=== PATIENT | female | born 1935 | race Caucasian/White ===

== ENCOUNTER → 2016-08-14 | Outpatient (CLI) | payer MEDICARE, OTHER ==
[~2016-08-14] MED LIST: ASPI-94 PO; BONI150T PO; LEVO.075 PO; NEUR100C PO; NEXI40CA PO; TYLE3 PO
[2016-08-14 13:28] LABS: MEAN CELL VOLUME 93.3 FL (80.0-100.0); MEAN CORPUSCULAR HGB CONC 33.3 % (32.0-36.0); PLATELET COUNT 261 TH/MM3 (150-450); RED BLOOD COUNT 4.07 MIL/MM3 (4.00-5.30); RED CELL DISTRIBUTION WIDTH 14.3 % (11.6-17.2); REVIEW FLAG FINAL; WHITE BLOOD COUNT 6.7 TH/MM3 (4.0-11.0)
[2016-08-14 13:29] LABS: ANION GAP 7 MEQ/L (5-15); AST (GOT) 30 U/L (15-37); BICARBONATE 31.7 MEQ/L (21.0-32.0); BLOOD UREA NITROGEN 12 MG/DL (7-18); CHLORIDE 105 MEQ/L (98-107); GLOMERULAR FILTRATION RATE 77 ML/MIN (>89); GLUCOSE,FASTING 85 MG/DL (74-99); POTASSIUM 4.6 MEQ/L (3.5-5.1); SODIUM (NA) 144 MEQ/L (136-145)
[2016-08-14 13:39] LABS: ALKALINE PHOSPHATASE 94 U/L (45-117); ALT (GPT) 31 U/L (10-53); FREE T4 1.19 NG/DL (0.76-1.46); HDL CHOLESTEROL 64.3 MG/DL (40.0-60.0); LDL CHOLESTEROL 107 MG/DL (0-99); LDL CHOLESTEROL DIRECT 116 MG/DL (0-99); TOTAL BILIRUBIN ADULT 0.4 MG/DL (0.2-1.0)
== END ==
LOC: PLAB 09:16
PROVIDERS: ATTEND Family Medicine
DX: E78.2 Mixed hyperlipidemia (principal); I10 Essential (primary) hypertension; E03.8 Other specified hypothyroidism; I73.9 Peripheral vascular disease, unspecified
CPT/HCPCS: 36415; 80053; 80061; 83721; 84439; 84443; 85027

== ENCOUNTER → 2016-11-10 | Outpatient (CLI) | payer MEDICARE, OTHER ==
[2016-11-10 14:05] LABS: HEMATOCRIT 37.3 % (35.0-46.0); MEAN CELL VOLUME 92.8 FL (80.0-100.0); MEAN CORPUSCULAR HEMOGLOBIN 31.1 PG (27.0-34.0); MEAN CORPUSCULAR HGB CONC 33.5 % (32.0-36.0); PLATELET COUNT 270 TH/MM3 (150-450); RED BLOOD COUNT 4.01 MIL/MM3 (4.00-5.30); RED CELL DISTRIBUTION WIDTH 14.2 % (11.6-17.2); REVIEW FLAG FINAL; WHITE BLOOD COUNT 6.8 TH/MM3 (4.0-11.0)
[2016-11-10 14:47] LABS: ANION GAP 7 MEQ/L (5-15); AST (GOT) 29 U/L (15-37); BICARBONATE 30.3 MEQ/L (21.0-32.0); BLOOD UREA NITROGEN 13 MG/DL (7-18); CHLORIDE 104 MEQ/L (98-107); GLOMERULAR FILTRATION RATE 98 ML/MIN (>89); GLUCOSE,FASTING 81 MG/DL (74-99); SODIUM (NA) 141 MEQ/L (136-145)
[2016-11-10 14:56] LABS: ALKALINE PHOSPHATASE 86 U/L (45-117); ALT (GPT) 27 U/L (10-53); FREE T4 1.19 NG/DL (0.76-1.46); LDL CHOLESTEROL 105 MG/DL (0-99); LDL CHOLESTEROL DIRECT 107 MG/DL (0-99); TOTAL BILIRUBIN ADULT 0.5 MG/DL (0.2-1.0)
== END ==
LOC: PLAB 09:38
PROVIDERS: ATTEND Family Medicine
DX: E78.4 Other hyperlipidemia (principal); I10 Essential (primary) hypertension; E03.8 Other specified hypothyroidism; I73.9 Peripheral vascular disease, unspecified
CPT/HCPCS: 36415; 80053; 80061; 83721; 84439; 84443; 85027

== ENCOUNTER → 2017-02-24 | Outpatient (CLI) | payer MEDICARE, OTHER ==
[~2017-02-24] MED LIST changes: +AMBI10TA PO; +ASPI81TA11 PO; +GABA600T PO; +LIPI20TA PO; +MULT1TAB46 PO; +SYNT88TA PO; +TYLETAB34 PO; +VITA100036 PO
[2017-02-24 13:21] LABS: HEMATOCRIT 38.3 % (35.0-46.0); MEAN CELL VOLUME 94.3 FL (80.0-100.0); MEAN CORPUSCULAR HEMOGLOBIN 31.6 PG (27.0-34.0); MEAN CORPUSCULAR HGB CONC 33.5 % (32.0-36.0); PLATELET COUNT 280 TH/MM3 (150-450); RED BLOOD COUNT 4.06 MIL/MM3 (4.00-5.30); RED CELL DISTRIBUTION WIDTH 13.4 % (11.6-17.2); REVIEW FLAG FINAL; WHITE BLOOD COUNT 6.8 TH/MM3 (4.0-11.0)
[2017-02-24 13:40] LABS: ANION GAP 7 MEQ/L (5-15); AST (GOT) 22 U/L (15-37); BLOOD UREA NITROGEN 13 MG/DL (7-18); CHLORIDE 105 MEQ/L (98-107); GLOMERULAR FILTRATION RATE 89 ML/MIN (>89); GLUCOSE,FASTING 74 MG/DL (74-99); POTASSIUM 3.8 MEQ/L (3.5-5.1); SODIUM (NA) 141 MEQ/L (136-145)
[2017-02-24 13:50] LABS: ALKALINE PHOSPHATASE 73 U/L (45-117); ALT (GPT) 23 U/L (10-53); FREE T4 1.51 NG/DL (0.76-1.46); HDL CHOLESTEROL 67.1 MG/DL (40.0-60.0); LDL CHOLESTEROL 85 MG/DL (0-99); LDL CHOLESTEROL DIRECT 100 MG/DL (0-99); TOTAL BILIRUBIN ADULT 0.5 MG/DL (0.2-1.0)
== END ==
LOC: PLAB 08:42
PROVIDERS: ATTEND Family Medicine
DX: E78.2 Mixed hyperlipidemia (principal); I10 Essential (primary) hypertension; E03.8 Other specified hypothyroidism; I73.9 Peripheral vascular disease, unspecified
CPT/HCPCS: 36415; 80053; 80061; 83721; 84439; 84443; 85027

== ENCOUNTER → 2017-03-01 | Outpatient (CLI) | payer MEDICARE, OTHER ==
[~2017-03-01] MED LIST changes: -ASPI81TA11 PO; +ASPI81TA23 PO; +CHOL10008 PO; -VITA100036 PO
[2017-03-01 12:18] LABS: AUTOMATED NEUTROPHIL # 3.9 TH/MM3 (1.8-7.7); BASOPHIL % 0.4 % (0.0-2.0); EOSINOPHIL # 0.1 TH/MM3 (0-0.4); EOSINOPHIL % 1.3 % (0.0-4.0); HEMATOCRIT 35.5 % (35.0-46.0); HEMOGLOBIN 12.1 GM/DL (11.6-15.3); LYMPH % 41.4 % (9.0-44.0); LYMPHOCYTE # 3.2 TH/MM3 (1.0-4.8); MEAN CELL VOLUME 92.2 FL (80.0-100.0); MEAN CORPUSCULAR HEMOGLOBIN 31.4 PG (27.0-34.0); MEAN CORPUSCULAR HGB CONC 34.1 % (32.0-36.0); MEAN PLATELET VOLUME 7.4 FL (7.0-11.0); MONO % 7.6 % (0.0-8.0); MONOCYTE # 0.6 TH/MM3 (0-0.9); NEUT % 49.3 % (16.0-70.0); PLATELET COUNT 325 TH/MM3 (150-450); RED BLOOD COUNT 3.85 MIL/MM3 (4.00-5.30); WHITE BLOOD COUNT 7.9 TH/MM3 (4.0-11.0)
--- NOTE | 2017-03-02 14:16 | EKG ---
Date Performed: 03/01/2017 Time Performed: 12:28:26 PTAGE: 81 years EKG: Sinus rhythm NORMAL ECG NO PREVIOUS TRACING DOCTOR: Irving Soler Interpretating Date/Time 03/02/2017 14:11:52
--- NOTE | 2017-03-02 14:16 | EKG ---
Date Performed: 03/01/2017 Time Performed: 12:28:26 PTAGE: 81 years EKG: Sinus rhythm NORMAL ECG NO PREVIOUS TRACING DOCTOR: Irving Sloer Interpretating Date/Time 03/02/2017 14:11:52
--- NOTE | 2017-03-02 14:16 | EKG ---
Date Performed: 03/01/2017 Time Performed: 12:28:26 PTAGE: 81 years EKG: Sinus rhythm NORMAL ECG NO PREVIOUS TRACING DOCTOR: Irving Soler Interpretating Date/Time 03/02/2017 14:11:52
== END ==
LOC: PHPRE 11:25
PROVIDERS: ATTEND Ophthalmology
DX: Z01.812 Encounter for preprocedural laboratory examination (principal); Z01.810 Encounter for preprocedural cardiovascular examination
CPT/HCPCS: 36415; 85025; 93005

== ENCOUNTER → 2017-03-15 | Day surgery (SDC) | payer MEDICARE, OTHER ==
--- NOTE | 2017-03-09 13:26 | MH ---
cc: [facility], JENAE TORREZ DATE OF ADMISSION: 03/15/2017 ADMISSION DIAGNOSIS Cataract, right eye. HISTORY OF PRESENT ILLNESS This 81-year-old white female is coming through [facility] for the purpose of a lens extraction of the right eye with intraocular lens implant under local anesthesia. She has noted decreasing visual acuity interfering with her daily activities and elected to have the above procedure. Her best-corrected visual acuity is 20/50 +2 in the right eye and 20/40 +2 in the left. PAST MEDICAL HISTORY 1. Cholesterol problems. 2. Thyroid problems. 3. Acid reflux. 4. Neuropathy. 5. Osteoporosis. PAST SURGICAL HISTORY 1. Right knee replacement. 2. Right leg amputation. 3. Right hip surgery. 4. twice. MEDICATIONS Daily medications include: 1. Neurontin. 2. Nexium. 3. Synthroid. 4. Ambien. 5. Multivitamins. 6. Boniva. 7. Baby aspirin. 8. Tylenol with codeine. ALLERGIES The patient is allergic to: 1. PENICILLIN. 2. VANCOMYCIN. 3. PERCOCET. 4. LORTAB. 5. VICODIN. 6. ULTRACET. SOCIAL HISTORY The patient does not smoke and has 1-2 alcoholic beverages a week. FAMILY HISTORY Positive for macular pucker in a sister. REVIEW OF SYSTEMS HEAD: Patient denies severe headaches, dizziness or recent head injury. EARS: Patient denies hearing loss, ear pain, discharge or ringing in the ears. NOSE: Patient denies nasal discharge, obstruction or frequent colds. MOUTH AND THROAT: Patient denies soreness of the mouth or tongue, bleeding gums, trouble swallowing, changes in voice or sore throat. NECK: Patient denies neck pain or swelling, limitation of neck movement or neck injury. CARDIOPULMONARY SYSTEM: Patient denies shortness of breath, orthopnea, chronic cough, sputum production, hemoptysis, chest pain, wheezing, palpitations or light-headedness. GI SYSTEM: Patient denies poor appetite, nausea, vomiting, abdominal pain, ulcers, hemorrhoids or change in bowel habits. SYSTEM: The patient denies urinary frequency, dysuria, change in urine color. NERVOUS SYSTEM: Patient denies convulsions, vertigo, stroke, numbness or weakness. PHYSICAL EXAMINATION VITAL SIGNS: Blood pressure 132/80, pulse 64, respirations 16. HEAD: Normocephalic, atraumatic. NOSE: Without rhinorrhea. THROAT: Clear. NECK: Supple. CHEST: Clear. HEART: Regular rhythm. ABDOMEN: Without tenderness. EXTREMITIES: With a right below-knee amputation. NEUROLOGIC: Within normal limits. MENTAL STATUS: Within normal limits. EYE EXAM: The patient's best-corrected visual acuity is 20/50 +2 in the right eye and 20/40 +2 in the left. Visual castellanos are full to confrontation testing. Extraocular muscle exam reveals full versions with orthophoria at distance and near. Pupils are 3.5 mm, equal, round, reactive to light without afferent defect. Anterior segment examination reveals nuclear sclerotic and cortical cataract changes bilaterally. Intraocular pressure is 13 in each eye by applanation tonometry. Dilated exam reveals sharp disks with cup-to-disk ratio of 0.45 bilaterally. The macula is clear bilaterally. A posterior vitreous detachment is present bilaterally with a vitreous floater in the right eye. IMPRESSION 1. Bilateral cataracts. 2. Posterior vitreous detachment, both eyes. 3. Dry eyes. PLAN Lens extraction of the right eye with intraocular lens implant under local anesthesia through [facility]. The patient has been cleared medically. She has been counseled as to the risks, benefits and alternatives and elected to proceed. I feel that cataract surgery will improve the quality of life and activities of daily living in this patient. MD JAKY Morrow/LALITO /12:57 PM /1:13 PM
[~2017-03-15] VITALS: Ht 160 cm; Wt 66.0 kg
[~2017-03-15] MED LIST changes: +ACETYLCHOLINE CHL OPHT SOLN 1:100 2 ML VIAL ONE; -ASPI-94 PO; +ASPI81TA11 PO; -ASPI81TA23 PO; +CHLORHEXIDINE GLUCONATE 2 % 1 PACK (2 CLOTHS) TOPICAL PRN; -CHOL10008 PO; +CYCLOPENTOLATE HCL 1% OPHT SOLN 2 ML BTL ONE; +DICLOFENAC SOD 0.1% OPHT SOLN 2.5 ML BTL ONE; +EPINEPHrine HCL (1:1000) 1 MG/ML VIAL ONE; +GATIFLOXACIN 0.5% OPHT SOLN 2.5 ML BTL ONE; +HYALURONIDASE/LIDOCAINE/BUPIVACAINE 4.5 ML SYR RIGHT EYE ONE; +HYALURONIDASE/LIDOCAINE/BUPIVACAINE 6 ML SYR RIGHT EYE ONE; +INSULIN HUMAN REGULAR 1,000 UNITS/10 ML VIAL SQ PRN; +LACTATED RINGER'S 1000 ML IV PRN; -LEVO.075 PO; +METOPROLOL TARTRATE 25 MG TAB PO PRN; +MIDAZOLAM HCL 2 MG/2 ML VIAL ONE; -NEUR100C PO; +PHENYLEPHRINE HCL 2.5% OPTH SOLN 2 ML BTL ONE; +PILOCARPINE HCL 2% OPHT SOLN 15 ML BTL ONE; +POVIDONE IODINE 5% (ANTISEPSIS KIT) 4 APPLICATIONS EACH NARE PRN; +PROPARACAINE HCL 0.5% OPHT SOLN 15 ML BTL ONE; +PROPARACAINE HCL 0.5% OPHT SOLN 15 ML BTL RIGHT EYE ONE; +PROPOFOL 200 MG/20 ML AMP ONE; +SODIUM CHLORID 0.9% 500 ML IV PRN; +TETRACAINE 0.5% OPTH SOLN 4 ML BTL ONE; +TOBRAMYCIN/DEXAMETHASONE OPTH OINT 3.5 GM TUBE ONE; +TROPICAMIDE 1% OPHT SOLN 15 ML BTL ONE; -TYLE3 PO; +VISCOAT OPHT IRRIG SOLN 0.75 ML SYRINGE ONE; +VITA100036 PO
[2017-03-15] MEDS: GATIFLOXACIN 0.5% OPHT SOLN 2.5 ML BTL RIGHT EYE SCH ×4 (06:34→06:43)
[2017-03-15] MEDS: PHENYLEPHRINE HCL 2.5% OPTH SOLN 2 ML BTL RIGHT EYE SCH ×4 (06:34→06:43)
[2017-03-15] MEDS: DICLOFENAC SOD 0.1% OPHT SOLN 2.5 ML BTL RIGHT EYE SCH ×4 (06:34→06:43)
[2017-03-15] MEDS: TROPICAMIDE 1% OPHT SOLN 15 ML BTL RIGHT EYE SCH ×4 (06:34→06:43)
[2017-03-15] MEDS: CYCLOPENTOLATE HCL 1% OPHT SOLN 2 ML BTL RIGHT EYE SCH ×4 (06:34→06:43)
[2017-03-15 06:35] VITALS: PULSE 73
[2017-03-15 07:02] VITALS: PULSE 79
[2017-03-15 08:35] VITALS: TEMP 98.1
[2017-03-15 09:05] VITALS: BP 119/73; PULSE 81; RESP 16; O2SAT 95
--- NOTE | 2017-03-15 09:07 | MP ---
cc: JENAE ROSEN DATE OF SURGERY: 03/15/2017 PREOPERATIVE DIAGNOSIS Cataract, right eye. POSTOPERATIVE DIAGNOSIS Cataract right eye. OPERATION Extracapsular cataract extraction with posterior chamber intraocular lens implant by phacoemulsification, right eye. SURGEON Jenae Rosen M.D. ANESTHESIA Local. COMPLICATIONS None. INDICATIONS See history and physical previously dictated. OPERATIVE PROCEDURE The patient had adequate retrobulbar and eyelid blocks administered in the holding area and was brought to the operating room. The right eye was prepped and draped in the usual sterile ophthalmic manner. A lid speculum was inserted in the right eye. A 4-0 silk bridle suture was placed through the conjunctiva near the superior rectus muscle and it was tacked to the drape. A fornix-based conjunctival flap was prepared spanning approximately 5 mm in width. Hemostasis was obtained with wet-field cautery. A 3.5 mm groove was made 1 mm from the limbus and dissected up to the limbus in the form of a scleral pocket incision. A stab incision was then made at the 2 o'clock position. Viscoelastic was injected into the anterior chamber. The anterior chamber was entered with a 2.75 mm keratome through the scleral pocket incision. A 360 degree continuous curvilinear capsulorrhexis was then performed. Hydrodissection was utilized to divide the nucleus into inner and outer components and to separate the cortex from the capsule. Phacoemulsification was then utilized to remove the nucleus. The outer nuclear layer was removed with irrigation and aspiration and short bursts of ultrasound as necessary. The cortex was removed with the irrigation-aspiration handpiece. The posterior capsule was polished with the capsule polisher. Viscoelastic was injected into the capsular bag. The intraocular lens was inspected and found to be in good condition. The lens utilized was an Garry, model SA60AT with a power of +19.5 diopters. The lens was inserted into the capsular bag. The viscoelastic in the anterior chamber was then removed with the irrigation-aspiration handpiece. Viscoelastic was also removed from beneath the intraocular lens. The anterior chamber was filled with Miochol-E through the stab incision and pressurized. The wound was checked for leaks at this pressure and normalized pressure, and there were none. The 4-0 bridle suture was removed. The conjunctival flap was brought down over the wound and secured with cautery. Pilocarpine 2% eye drops were instilled topically. The lid speculum was removed. TobraDex ophthalmic ointment was applied. The eye was double patched and shielded. The patient tolerated the procedure well and left the Operating Room in satisfactory condition. JenaeMD JAKY Garcia/LALITO /8:36 AM /9:03 AM
== END | disposition home or self-care (01) ==
LOC: PHSDC 06:11
PROVIDERS: ATTEND Ophthalmology
DX: H26.9 Unspecified cataract (principal); H43.813 Vitreous degeneration, bilateral; K21.9 Gastro-esophageal reflux disease without esophagitis; G62.9 Polyneuropathy, unspecified; M81.0 Age-related osteoporosis without current pathological fracture; Z96.651 Presence of right artificial knee joint; Z89.511 Acquired absence of right leg below knee
CPT/HCPCS: 00142; 66984; J0171; J2250; J7040; V2632

== ENCOUNTER → 2017-05-10 | Day surgery (SDC) | payer MEDICARE, OTHER ==
[~2017-05-10] VITALS: Ht 160 cm; Wt 66.0 kg
[~2017-05-10] MED LIST changes: -ASPI81TA11 PO; +ASPI81TA23 PO; +CHOL10008 PO; -EPINEPHrine HCL (1:1000) 1 MG/ML VIAL ONE; +EPINEPHrine HCL PF/SF (1:1000) 1 MG/ML AMP I-OCULAR ONE; -HYALURONIDASE/LIDOCAINE/BUPIVACAINE 4.5 ML SYR RIGHT EYE ONE; +HYALURONIDASE/LIDOCAINE/BUPIVACAINE 5 ML SYR LEFT EYE ONE; -HYALURONIDASE/LIDOCAINE/BUPIVACAINE 6 ML SYR RIGHT EYE ONE; -INSULIN HUMAN REGULAR 1,000 UNITS/10 ML VIAL SQ PRN; +PROPARACAINE HCL 0.5% OPHT SOLN 15 ML BTL LEFT EYE ONE; -PROPARACAINE HCL 0.5% OPHT SOLN 15 ML BTL RIGHT EYE ONE; -TETRACAINE 0.5% OPTH SOLN 4 ML BTL ONE; -VITA100036 PO
[2017-05-10 06:37] VITALS: PULSE 70; PULSE 71
[2017-05-10] MEDS: PHENYLEPHRINE HCL 2.5% OPTH SOLN 2 ML BTL LEFT EYE SCH ×4 (06:39→06:48)
[2017-05-10] MEDS: TROPICAMIDE 1% OPHT SOLN 15 ML BTL LEFT EYE SCH ×4 (06:39→06:48)
[2017-05-10] MEDS: DICLOFENAC SOD 0.1% OPHT SOLN 2.5 ML BTL LEFT EYE SCH ×4 (06:39→06:48)
[2017-05-10] MEDS: GATIFLOXACIN 0.5% OPHT SOLN 2.5 ML BTL LEFT EYE SCH ×4 (06:39→06:48)
[2017-05-10] MEDS: CYCLOPENTOLATE HCL 1% OPHT SOLN 2 ML BTL LEFT EYE SCH ×4 (06:42→06:51)
--- NOTE | 2017-05-10 07:13 | MH ---
cc: JENAE TORREZ M.D. DATE OF ADMISSION: 05/10/2017 ADMISSION DIAGNOSIS Cataract, left eye. HISTORY OF PRESENT ILLNESS This 81-year-old white female is coming through [facility] for the purpose of a lens extraction of the left eye with intraocular lens implant under local anesthesia. She has noticed decreasing visual acuity interfering with her daily activities and elected to have the above procedure. She had a similar procedure on the right eye in March of this year and did well postoperatively. Her best corrected visual acuity is 20/25 in the right eye and 20/40 in the left eye. PAST MEDICAL HISTORY The patient has a history of: 1. Cholesterol problems. 2. Thyroid problems. 3. Acid reflux. 4. Neuropathy. 5. Osteoporosis. 6. Right knee replacement and eventually right leg amputation. PAST SURGICAL HISTORY The surgical history includes: 1. . 2. Right hip surgery. 3. Right knee replacement and amputation mentioned above. 4. Tubal ligation. MEDICATIONS Daily medications include: 1. Neurontin. 2. Nexium. 3. Synthroid. 4. Ambien. 5. Multivitamins. 6. Boniva. 7. Baby aspirin. 8. Tylenol with Codeine. ALLERGIES She is allergic to PENICILLIN, VANCOMYCIN, PERCOCET, LORTAB, VICODIN, ULTRACET. SOCIAL HISTORY She does not smoke and drinks alcohol once or twice a week. FAMILY HISTORY Family history is positive for macular pucker in her sister. REVIEW OF SYSTEMS HEAD: Patient denies severe headaches, dizziness or recent head injury. EARS: Patient denies hearing loss, ear pain, discharge or ringing in the ears. NOSE: Patient denies nasal discharge, obstruction or frequent colds. MOUTH AND THROAT: Patient denies soreness of the mouth or tongue, bleeding gums, trouble swallowing, changes in voice or sore throat. NECK: Patient denies neck pain or swelling, limitation of neck movement or neck injury. CARDIOPULMONARY SYSTEM: Patient denies shortness of breath, orthopnea, chronic cough, sputum production, hemoptysis, chest pain, wheezing, palpitations or light-headedness. GI SYSTEM: Patient denies poor appetite, nausea, vomiting, abdominal pain, ulcers, hemorrhoids or change in bowel habits. SYSTEM: The patient denies urinary frequency, dysuria, change in urine color. NERVOUS SYSTEM: Patient denies convulsions, vertigo, stroke, numbness or weakness. PHYSICAL EXAMINATION VITAL SIGNS: Blood pressure 136/78, pulse 64, respirations 12. HEAD: Normocephalic, atraumatic. NOSE: Without rhinorrhea. THROAT: Clear. NECK: Supple. CHEST: Clear. HEART: Regular rhythm. ABDOMEN: Without tenderness. EXTREMITIES: With an amputation of the right leg. NEUROLOGIC: Within normal limits. MENTAL STATUS: Within normal limits. EYE EXAMINATION: The patient's best corrected visual acuity is 20/25 in the right eye and 20/40 in the left. Visual castellanos are full to confrontation testing. Extraocular muscle exam reveals full versions with orthophoria at distance and near. Pupils are 3.5 mm equal, round, reactive to light without afferent defect. Anterior segment examination reveals a posterior chamber intraocular lens in place in the right eye and a nuclear sclerotic and cortical cataract present in the left eye. Intraocular pressure is 12 in the right eye and 14 in the left by applanation tonometry. Dilated fundus exam reveals sharp disks with cup-to-disk ratio of 0.45 bilaterally. The macula is clear and a posterior vitreous detachment is present bilaterally with vitreous floater in the right eye. IMPRESSION 1. Cataract, left eye. 2. Pseudophakia, right eye. 3. Posterior vitreous detachment both eyes with vitreous floater right eye. PLAN The plan is lens extraction of the left eye with intraocular lens implant under local anesthesia through [facility]. The patient has been cleared medically. She has been counseled as to the risks, benefits and alternatives and elected to proceed. I feel that cataract surgery will improve the quality of life and activities of daily living in this patient. MD JAKY Morrow/LEX /7:59 AM /7:16 AM
[2017-05-10 07:16] VITALS: PULSE 70
[2017-05-10 08:55] VITALS: BP 122/40; PULSE 64; RESP 16; TEMP 98.3; O2SAT 99
--- NOTE | 2017-05-10 09:31 | MP ---
cc: JENAE ROSEN DATE OF SURGERY 05/10/2017 PREOPERATIVE DIAGNOSIS Cataract left eye. POSTOPERATIVE DIAGNOSIS Cataract left eye. OPERATION Extracapsular cataract extraction with posterior chamber intraocular lens implant by phacoemulsification, left eye. SURGEON Jenae Rosen M.D. ANESTHESIA Local COMPLICATIONS None INDICATIONS See history and physical previously dictated. OPERATIVE PROCEDURE The patient had adequate retrobulbar and eyelid blocks administered in the holding area and was brought to the operating room. The left eye was prepped and draped in the usual sterile ophthalmic manner. A lid speculum was inserted in the left eye. A 4-0 silk bridle suture was placed through the conjunctiva near the superior rectus muscle and it was tagged to the drape. A fornix-based conjunctival flap was prepared spanning approximately 5 mm in width. Hemostasis was obtained with wet-field cautery. A 3.5 mm groove was made 1 mm from the limbus and dissected up to the limbus in the form of a scleral pocket incision. A stab incision was then made at the 2 o'clock position. Viscoelastic was injected into the anterior chamber. The anterior chamber was entered with a 2.75 mm keratome through the scleral pocket incision. A 360 degree continuous curvilinear capsulorrhexis was then performed. Hydrodissection was utilized to divide the nucleus into inner and outer components and to separate the cortex from the capsule. Phacoemulsification was then utilized to remove the nucleus. The outer nuclear layer was removed with irrigation and aspiration and short bursts of ultrasound as necessary. The cortex was removed with the irrigation-aspiration hand piece. The posterior capsule was polished with the capsule polisher. Viscoelastic was injected into the capsular bag. The intraocular lens was inspected and found to be in good condition. The lens utilized was a Garry, model number SA60AT with a power of +22 diopters. The lens was inserted into the capsular bag. The viscoelastic in the anterior chamber was then removed with the irrigation-aspiration hand piece. Viscoelastic was also removed from beneath the intraocular lens. The anterior chamber was filled with Miochol-E through the stab incision and pressurized. The wound was closed with one interrupted 10-0 nylon suture. The wound was checked for leaks and there were none. The 4-0 bridle suture was removed. The conjunctival flap was brought down over the wound and secured with cautery. Pilocarpine 2% eye drops were instilled topically. The lid speculum was removed. TobraDex ophthalmic ointment was applied. The eye was double patched and shielded. The patient tolerated the procedure well and left the Operating Room in satisfactory condition. MD JAKY Morrow/ESSIE /8:43 AM /9:33 AM
== END | disposition home or self-care (01) ==
LOC: PHSDC 06:10
PROVIDERS: ATTEND Ophthalmology
DX: H26.9 Unspecified cataract (principal); H43.813 Vitreous degeneration, bilateral; K21.9 Gastro-esophageal reflux disease without esophagitis
CPT/HCPCS: 00142; 66984; J0171; J2250; J7040; V2632

== ENCOUNTER → 2017-05-25 | Outpatient (CLI) | payer MEDICARE, OTHER ==
[~2017-05-25] MED LIST changes: -ACETYLCHOLINE CHL OPHT SOLN 1:100 2 ML VIAL ONE; -CHLORHEXIDINE GLUCONATE 2 % 1 PACK (2 CLOTHS) TOPICAL PRN; -CYCLOPENTOLATE HCL 1% OPHT SOLN 2 ML BTL ONE; -DICLOFENAC SOD 0.1% OPHT SOLN 2.5 ML BTL ONE; -EPINEPHrine HCL PF/SF (1:1000) 1 MG/ML AMP I-OCULAR ONE; -GATIFLOXACIN 0.5% OPHT SOLN 2.5 ML BTL ONE; -HYALURONIDASE/LIDOCAINE/BUPIVACAINE 5 ML SYR LEFT EYE ONE; -LACTATED RINGER'S 1000 ML IV PRN; -METOPROLOL TARTRATE 25 MG TAB PO PRN; -MIDAZOLAM HCL 2 MG/2 ML VIAL ONE; -PHENYLEPHRINE HCL 2.5% OPTH SOLN 2 ML BTL ONE; -PILOCARPINE HCL 2% OPHT SOLN 15 ML BTL ONE; -POVIDONE IODINE 5% (ANTISEPSIS KIT) 4 APPLICATIONS EACH NARE PRN; -PROPARACAINE HCL 0.5% OPHT SOLN 15 ML BTL LEFT EYE ONE; -PROPARACAINE HCL 0.5% OPHT SOLN 15 ML BTL ONE; -PROPOFOL 200 MG/20 ML AMP ONE; -SODIUM CHLORID 0.9% 500 ML IV PRN; -TOBRAMYCIN/DEXAMETHASONE OPTH OINT 3.5 GM TUBE ONE; -TROPICAMIDE 1% OPHT SOLN 15 ML BTL ONE; -VISCOAT OPHT IRRIG SOLN 0.75 ML SYRINGE ONE
[2017-05-25 13:33] LABS: HEMATOCRIT 36.9 % (35.0-46.0); MEAN CELL VOLUME 93.9 FL (80.0-100.0); MEAN CORPUSCULAR HGB CONC 33.1 % (32.0-36.0); PLATELET COUNT 318 TH/MM3 (150-450); RED BLOOD COUNT 3.93 MIL/MM3 (4.00-5.30); RED CELL DISTRIBUTION WIDTH 14.9 % (11.6-17.2); REVIEW FLAG FINAL; WHITE BLOOD COUNT 8.6 TH/MM3 (4.0-11.0)
[2017-05-25 13:34] LABS: ANION GAP 6 MEQ/L (5-15); AST (GOT) 76 U/L (15-37); BICARBONATE 29.6 MEQ/L (21.0-32.0); BLOOD UREA NITROGEN 13 MG/DL (7-18); CHLORIDE 106 MEQ/L (98-107); GLOMERULAR FILTRATION RATE 113 ML/MIN (>89); GLUCOSE,FASTING 83 MG/DL (74-99); POTASSIUM 4.1 MEQ/L (3.5-5.1); SODIUM (NA) 142 MEQ/L (136-145)
[2017-05-25 13:36] LABS: ALT (GPT) 195 U/L (10-53)
[2017-05-25 13:44] LABS: ALKALINE PHOSPHATASE 339 U/L (45-117); FREE T4 1.06 NG/DL (0.76-1.46); HDL CHOLESTEROL 63.9 MG/DL (40.0-60.0); LDL CHOLESTEROL 97 MG/DL (0-99); LDL CHOLESTEROL DIRECT 106 MG/DL (0-99); TOTAL BILIRUBIN ADULT 0.5 MG/DL (0.2-1.0)
== END ==
LOC: PLAB 08:28
PROVIDERS: ATTEND Family Medicine
DX: E78.2 Mixed hyperlipidemia (principal); I10 Essential (primary) hypertension; I73.9 Peripheral vascular disease, unspecified
CPT/HCPCS: 36415; 80053; 80061; 83721; 84439; 84443; 85027

== ENCOUNTER → 2017-08-24 | Outpatient (CLI) | payer MEDICARE, OTHER ==
[2017-08-24 11:26] LABS: HEMATOCRIT 37.7 % (35.0-46.0); HEMOGLOBIN 12.7 GM/DL (11.6-15.3); MEAN CELL VOLUME 94.1 FL (80.0-100.0); MEAN CORPUSCULAR HEMOGLOBIN 31.8 PG (27.0-34.0); MEAN CORPUSCULAR HGB CONC 33.8 % (32.0-36.0); MEAN PLATELET VOLUME 8.4 FL (7.0-11.0); PLATELET COUNT 258 TH/MM3 (150-450); RED BLOOD COUNT 4.01 MIL/MM3 (4.00-5.30); RED CELL DISTRIBUTION WIDTH 14.2 % (11.6-17.2); WHITE BLOOD COUNT 8.8 TH/MM3 (4.0-11.0)
[2017-08-24 11:38] LABS: ALBUMIN 3.4 GM/DL (3.4-5.0); AST (GOT) 31 U/L (15-37); BICARBONATE 31.5 MEQ/L (21.0-32.0); BLOOD UREA NITROGEN 15 MG/DL (7-18); CALCIUM 9.6 MG/DL (8.5-10.1); CHLORIDE 105 MEQ/L (98-107); CREATININE 0.65 MG/DL (0.50-1.00); GLOMERULAR FILTRATION RATE 87 ML/MIN (>89); GLUCOSE,FASTING 88 MG/DL (74-99); SODIUM (NA) 143 MEQ/L (136-145)
[2017-08-24 11:39] LABS: CHOLESTEROL 186 MG/DL (120-200); TRIGLYCERIDES 107 MG/DL (42-150)
[2017-08-24 11:48] LABS: ALKALINE PHOSPHATASE 108 U/L (45-117); ALT (GPT) 29 U/L (10-53); CHOLESTEROL/ HDL RATIO 2.62 RATIO; FREE T4 1.15 NG/DL (0.76-1.46); HDL CHOLESTEROL 70.9 MG/DL (40.0-60.0); LDL CHOLESTEROL 94 MG/DL (0-99); LDL CHOLESTEROL DIRECT 107 MG/DL (0-99); TOTAL BILIRUBIN ADULT 0.5 MG/DL (0.2-1.0); TOTAL PROTEIN 6.7 GM/DL (6.4-8.2)
== END ==
LOC: PLAB 09:08
PROVIDERS: ATTEND Family Medicine
DX: E78.5 Hyperlipidemia, unspecified (principal); I10 Essential (primary) hypertension; E03.8 Other specified hypothyroidism; I73.9 Peripheral vascular disease, unspecified
CPT/HCPCS: 36415; 80053; 80061; 83721; 84439; 84443; 85027

== ENCOUNTER → 2017-11-30 | Outpatient (CLI) | payer MEDICARE, OTHER ==
[2017-11-30 10:33] LABS: HEMATOCRIT 37.3 % (35.0-46.0); HEMOGLOBIN 12.4 GM/DL (11.6-15.3); MEAN CELL VOLUME 92.4 FL (80.0-100.0); MEAN CORPUSCULAR HEMOGLOBIN 30.8 PG (27.0-34.0); MEAN CORPUSCULAR HGB CONC 33.3 % (32.0-36.0); MEAN PLATELET VOLUME 8.2 FL (7.0-11.0); PLATELET COUNT 300 TH/MM3 (150-450); RED BLOOD COUNT 4.03 MIL/MM3 (4.00-5.30); RED CELL DISTRIBUTION WIDTH 14.6 % (11.6-17.2); WHITE BLOOD COUNT 7.8 TH/MM3 (4.0-11.0)
[2017-11-30 10:53] LABS: ALBUMIN 3.3 GM/DL (3.4-5.0); AST (GOT) 22 U/L (15-37); BICARBONATE 26.4 MEQ/L (21.0-32.0); BLOOD UREA NITROGEN 11 MG/DL (7-18); CALCIUM 8.7 MG/DL (8.5-10.1); CHLORIDE 107 MEQ/L (98-107); CHOLESTEROL 169 MG/DL (120-200); CREATININE 0.63 MG/DL (0.50-1.00); GLOMERULAR FILTRATION RATE 90 ML/MIN (>89); SODIUM (NA) 142 MEQ/L (136-145)
[2017-11-30 11:08] LABS: ALKALINE PHOSPHATASE 75 U/L (45-117); ALT (GPT) 23 U/L (10-53); CHOLESTEROL/ HDL RATIO 2.93 RATIO; FREE T4 1.29 NG/DL (0.76-1.46); GLUCOSE,FASTING 82 MG/DL (74-99); HDL CHOLESTEROL 57.6 MG/DL (40.0-60.0); LDL CHOLESTEROL 83 MG/DL (0-99); LDL CHOLESTEROL DIRECT 88 MG/DL (0-99); TOTAL BILIRUBIN ADULT 0.3 MG/DL (0.2-1.0); TOTAL PROTEIN 6.5 GM/DL (6.4-8.2); TRIGLYCERIDES 140 MG/DL (42-150)
[2017-11-30 18:02] LABS: HEMOGLOBIN A1C 5.5 % (4.3-6.0)
== END ==
LOC: PLAB 08:22
PROVIDERS: ATTEND Family Medicine
DX: R53.83 Other fatigue (principal); E78.5 Hyperlipidemia, unspecified; I10 Essential (primary) hypertension; E03.8 Other specified hypothyroidism; R73.01 Impaired fasting glucose
CPT/HCPCS: 36415; 80053; 80061; 83036; 83721; 84439; 84443; 85027